=== PATIENT | male | born 1990 | race Asian ===

== ENCOUNTER 2018-07-24 16:23 | Emergency (ER) | payer OTHER ==
[2018-07-24 16:46] VITALS: BP 142/77
--- NOTE | 2018-07-24 18:10 | UC ---
Abdominal Pain Male HPI - HPI Summary HPI Summary: 27-year-old male presents with 2 week history of epigastric pain. States pain started as some intermittent epigastric pain but over the last week it has become more constant. He is unable to describe the pain. States it improves some with eating. He did take [id number] Prilosec for several days with improvement in symptoms and then stopped and symptoms worsened. He has been taking Nexium for the last 4-5 days with no relief in symptoms. Associated with some occasional nausea. Denies fever, chills, chest pain, palpitations, weakness, dizziness, shortness of breath, diaphoresis, vomiting, diarrhea, blood in stools, melena, dysuria, frequency, or urgency. - History of Current Complaint Chief Complaint: UCGU Stated Complaint: ABDOMINAL PAIN Time Seen by Provider: 07/24/18 18:05 Hx Obtained From: Patient Pain Intensity: 6 - Allergies/Home Medications Allergies/Adverse Reactions: Allergies Allergy/AdvReac Type Severity Reaction Status Date / Time No Known Allergies Allergy Verified 07/24/18 16:46 PMH/Surg Hx/FS Hx/Imm Hx Previously Healthy: Yes - Denies significant PMH - Surgical History Surgical History: None - Family History Known Family History: Positive: Non-Contributory - Social History Occupation: Student Lives: Dormitory/Roommates Alcohol Use: Daily Substance Use Type: None Smoking Status (MU): Never Smoked Tobacco Review of Systems All Other Systems Reviewed And Are Negative: Yes Constitutional: Negative: Fever, Chills Skin: Positive: Negative ENT: Positive: Negative Respiratory: Positive: Negative Cardiovascular: Positive: Negative Gastrointestinal: Positive: Abdominal Pain. Negative: Vomiting, Diarrhea, Nausea Genitourinary: Positive: Negative Musculoskeletal: Positive: Negative Neurological: Positive: Negative Is Patient Immunocompromised?: No Physical Exam - Summary Physical Exam Summary: GENERAL APPEARANCE: Well developed, well nourished, alert and cooperative, and appears to be in no acute distress. CARDIAC: Normal S1 and S2. No S3, S4 or murmurs. Rhythm is regular. There is no peripheral edema, cyanosis or pallor. Extremities are warm and well perfused. Capillary refill is less than 2 seconds. LUNGS: Clear to auscultation without rales, rhonchi, wheezing or diminished breath sounds. ABDOMEN: Positive bowel sounds. Soft, nondistended. Mild epigastric, RUQ, and RLQ tenderness without guarding or rebound. No masses or hepatosplenomegally. No CVA tenderness. MUSKULOSKELETAL: ROM intact to all extremities. No joint erythema or tenderness. Normal muscular development. Normal gait. SKIN: Skin normal color, texture and turgor with no lesions or eruptions. Triage Information Reviewed: Yes Vital Signs: Initial Vital Signs Temp 97.7 F 07/24/18 16:40 Pulse 98 07/24/18 16:40 Resp 18 07/24/18 16:40 BP 142/77 07/24/18 16:40 Pulse Ox 100 07/24/18 16:40 Vital Signs Reviewed: Yes Abd Pain Male Course/Dx - Course Course Of Treatment: 27-year-old male presents with 2 week history of epigastric pain. States pain started as some intermittent epigastric pain but over the last week it has become more constant. He is unable to describe the pain. States it improves some with eating. He did take [id number] Prilosec for several days with improvement in symptoms and then stopped and symptoms worsened. He has been taking Nexium for the last 4-5 days with no relief in symptoms. Associated with some occasional nausea. Denies fever, chills, chest pain, palpitations, weakness, dizziness, shortness of breath, diaphoresis, vomiting, diarrhea, blood in stools, melena, dysuria, frequency, or urgency. Afebrile. Mild hypertension otherwise vital signs stable. Exam reveals mild epigastric, right upper quadrant, and right lower quadrant tenderness without guarding or rebound otherwise exam is unremarkable. I suspect that his pain is likely peptic ulcer disease however with his abdominal tenderness and the fact that he reports pain is worsening despite being on Nexium I cannot rule out the possibility of gallbladder disease or pancreatitis and I'm recommending that he be evaluated in the emergency room at this time. 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 The patient is clinically sober, free from distracting injury, appears to have insight and reasoning and in my judgment has capacity to make decisions. I have explained that I am concerned that his/her symptoms may represent gall bladder disease or pancreatitis and he verbalizes understanding of my concern. I have told the patient that despite not having fever they could still have a condition that may require urgent attention. I have discussed the need for further evaluation in the emergency room to obtain more information about the source of his pain. I have told the patient if he chooses not to have any further evaluation he could have worsening of symptoms, become critically ill, suffer diability, and even possibly . The paient continues to decline any further evaluation and is being discharged to home against medical advice. I am going to have him restart omeprazole at 40 mg daily and have him follow up with [facility] for further evaluation of his epigastric pain. I have reviewed warning symptoms that would require immediate evaluation in the emergency room. He verbalizes understanding and agrees with plan of care. - Differential Dx/Clinical Impression Differential Diagnosis/HQI/PQRI: Gall Bladder Disease, Pancreatitis, Peptic Ulcer Disease, Other - GERD Provider Diagnosis: Acute epigastric pain Discharge - Sign-Out/Discharge Documenting (check all that apply): Patient Departure All imaging exams completed and their final reports reviewed: No Studies - Discharge Plan Condition: Stable Disposition: HOME Prescriptions: Omeprazole 40 mg PO DAILY #30 cap Patient Education Materials: Epigastric Pain (ED) Referrals: No Primary Care Phys,NOPCP [Primary Care Provider] - Care [facility] [Outside] - As Soon As Possible (Call tomorrow morning for an appointment.) Additional Instructions: Your epigastric pain is concerning for a peptic ulcer however I cannot exclude other causes of your pain such as gall bladder disease or pancreatitis which may require more urgent attention. I have recommended that you be evaluated in the emergency room for your pain but you have declined this at this time. Start omeprazole (Prilosec) 40 mg daily. I sent a prescription for you for this medication to the pharmacy. Avoid eating spicy or fatty foods. Follow up with the [facility] for further evaluation of your pain. Call tomorrow morning for an appointment. Seek immediate medical attention in the emergency room if you develop fever greater than 100.5 F, have worsening of your abdominal pain, persistent vomiting , there is blood in your emesis or bowel movement, or any worsening of symptoms. - Billing Disposition and Condition Condition: STABLE Disposition: Home
== END 2018-07-24 18:50 | disposition home or self-care (01) ==
LOC: UCEAST 16:23
DX: R10.13 Epigastric pain (principal); R11.0 Nausea
CPT/HCPCS: 99202; G0463

== ENCOUNTER → 2018-08-03 09:32 | Emergency (ER) | payer OTHER ==
[~2018-08-03 09:32] MED LIST: Al Hydrox/Mg Hydrox/Simet LIQ* 30 ML UDC PO ONE; Lidocaine 2% VISCOUS* 15 ML UDC PO ONE
--- OUTSIDE RECORDS SUMMARY | 2018-08-03 09:55 | XMS REPORT | Continuity of Care Document ---
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 Payers Date Identification Numbers Payment Provider Subscriber Policy Number: [id number] Private Luci Dubose PayID: [id number] [facility] [address] [place] [id number] Advance Directives Description No Information Available Problems Description No Information Family History Description No Information Available Social History Type Date Description Comments Sex Unknown Tobacco Use Start: Unknown Patient has never smoked Smoking Status Reviewed: 07/25/18 Patient has never smoked Allergies, Adverse Reactions, Alerts Description No Known Drug Allergies Medications Medication Date Status Form Strength Qnty SIG Indications Ordering Provider Prilosec Active Capsules DR 40mg 1 by Unknown 00 mouth every day Immunizations Description No Information Available Vital Signs Date Vital Result Comment 07/25/2018 1:03pm Height 69 inches 5'9" Weight 162.00 lb Heart Rate 82 /min BP Systolic Sitting 110 mmHg reg adult cuff left arm BP Diastolic Sitting 70 mmHg reg adult cuff left arm Respiratory Rate 16 /min O2 % BldC Oximetry 98 % at rest on room air BMI (Body Mass Index) 23.9 kg/m2 Results Description No Information Available Procedures Description No Information Available Encounters Description No Information Available Plan of Treatment 07/25/2018 - MENG Shah10.13 Epigastric painRecommendations:Take the omeprazole (prilosec) every day Let's start with blood work--I will call you with the results To truly diagnose Peptic Ulcer Disease, you would need an endoscopy, but to avoid the cost of this, we can check a h. pylori stool antigen. If blood work is abnormal, we can pursue a gastroenterologyconsult or imaging (ultrasound or CT)
--- NOTE | 2018-08-03 10:54 | ED ---
Abdominal Pain/Male - HPI Summary HPI Summary: A 27 y/o M presents to ED with c/o worsening mild epigastric abd pain ongoing two days ago. He has had ongoing mild epigastric abd pain for the past 20 days. The pain rated as 4 out of 10. He's been seen at [facility] by Dr. Andres on 07/25/18 for same sx. He was given Prilosec 40mg daily and told to f/u with [facility]. He says the Prilosec was helping mildly. He's also been taking a [place] medication to some relief. Associated sx: severe diarrhea 5x yesterday, black stool, gassy, nausea. It was the diarrhea that caused him to come into the ED for evaluation. Denies fever, back pain. He denies past surgeries. He is scheduled to return to [facility] in one week. - History of Current Complaint Chief Complaint: EDAbdPain Stated Complaint: ABD PAIN Time Seen by Provider: 08/03/18 10:39 Hx Obtained From: Patient Onset/Duration: Lasting Days - worsening, Lasting Weeks - initial onset 2.5 weeks ago, Still Present Timing: Constant Severity Initially: Moderate Severity Currently: Moderate Pain Intensity: 4 - at bedside Pain Scale Used: 0-10 Numeric Location: Epigastric Radiates: No Character: Other: - aching, throbbing, tightness Alleviating Factor(s): Medications Associated Signs And Symptoms: Positive: Nausea, Diarrhea, Other - pos: gassy, black stool. Negative: Fever, Back Pain - Allergies/Home Medications Allergies/Adverse Reactions: Allergies Allergy/AdvReac Type Severity Reaction Status Date / Time No Known Allergies Allergy Verified 07/24/18 16:46 PMH/Surg Hx/FS Hx/Imm Hx Previously Healthy: Yes Endocrine/Hematology History: Denies: Hx Diabetes, Hx Thyroid Disease Cardiovascular History: Denies: Hx Hypertension Respiratory History: Denies: Hx Asthma, Hx Chronic Obstructive Pulmonary Disease (COPD) GI History: Denies: Hx Ulcer Infectious Disease History: No Infectious Disease History: Denies: Hx Hepatitis, Hx Human Immunodeficiency Virus (HIV), Traveled Outside the in Last 30 Days - Family History Known Family History: Positive: Non-Contributory - Social History Occupation: Student Lives: Alone Alcohol Use: Daily Hx Substance Use: No Substance Use Type: Reports: None Hx Tobacco Use: No Smoking Status (MU): Never Smoked Tobacco Review of Systems Negative: Fever, Chills Negative: Erythema Negative: Sore Throat Negative: Chest Pain Negative: Shortness Of Breath, Cough Positive: Abdominal Pain, Diarrhea, Nausea, Other - pos: black stool, gas. Negative: Vomiting Negative: dysuria, hematuria Negative: Myalgia, Edema Negative: Rash Neurological: Other - neg: dizziness All Other Systems Reviewed And Are Negative: Yes Physical Exam - Summary Physical Exam Summary: Constitutional: Well-developed, Well-nourished, Alert. (-) Distressed Skin: Warm, Dry HENT: Normocephalic; Atraumatic Eyes: Conjunctiva normal Neck: Musculoskeletal ROM normal neck. (-) JVD, (-) Stridor, (-) Tracheal deviation Cardio: Rhythm regular, rate normal, Heart sounds normal; Intact distal pulses; The pedal pulses are 2+ and symmetric. Radial pulses are 2+ and symmetric. (-) Murmur Pulmonary/Chest wall: Effort normal. (-) Respiratory distress, (-) Wheezes, (-) Rales Abd: Soft, mild epigastric tenderness, (-) Distension, (-) Guarding, (-) Rebound Musculoskeletal: (-) Edema Lymph: (-) Cervical adenopathy Neuro: Alert, Oriented x3 Psych: Mood and affect Normal Triage Information Reviewed: Yes Vital Signs On Initial Exam: Initial Vitals Temp Pulse Resp BP Pulse Ox 98.6 F 101 18 126/82 99 08/03/18 09:35 08/03/18 09:35 08/03/18 09:35 08/03/18 09:35 08/03/18 09:35 Vital Signs Reviewed: Yes Diagnostics - Vital Signs Vital Signs Temp Pulse Resp BP Pulse Ox 08/03/18 09:35 98.6 F 101 18 126/82 99 - Laboratory Result Diagrams: 08/03/18 11:12 08/03/18 11:12 Lab Statement: Any lab studies that have been ordered have been reviewed, and results considered in the medical decision making process. - Ultrasound No standard instances Ultrasound Interpretation Completed By: Radiologist Summary of Ultrasound Findings: GALLBLADDER U/S, IMPRESSION: NO SONOGRAPHIC EVIDENCE OF ACUTE CHOLECYSTITIS OR OTHER ACUTE RIGHT UPPER QUADRANT ABNORMALITY. ED provider has reviewed this report. Re-Evaluation - Re-Evaluation 1 Re-Evaluation Time: 12:30 Change: Unchanged Comment: After additional discussion, pt states he did take Pepto-Bismal, which is likely the cause of his black stools. I also recommended Immodium to him. Abdominal Pain Fem Course/Dx - Course Course Of Treatment: Pt is a 27 y/o M presenting with worsening mild epigastric abd pain onset two days ago. He has had ongoing mild epigastric abd pain for the past 20 days. The pain is rated as 4/10. He's been seen at [facility] by Dr. Andres on 07/25/18 for same sx. He was given Prilosec 40mg daily and told to f/u with [facility]. Associated sx: severe diarrhea 5x yesterday, black stool, gassy, nausea. Denies fever, back pain. He denies past surgeries. He is scheduled to return to [facility] in one week. High suspicion for peptic ulcer or gastritis. Lab work is unremarkable. Hemoglobin is metastatically stable. Gallbladder U/S is nengative. Pt has been symptomatic for a few weeks. Stool guiac is pending. No signficant tenderness over abd on exam. After additional discussion, pt states he did take Pepto-Bismal, which is likely the cause of his black stools. I also recommended Immodium to him. Will discharge pt home to f/u with GI in 2-3 days, or to f/u with GI in [place] as time/travel dictates. Will change his medication to protonix, carafate and to discontinue prilosec. - Diagnoses Differential Diagnosis/HQI/PQRI: Peptic Ulcer Disease, Other - Gastritis Provider Diagnoses: Epigastric pain Discharge - Sign-Out/Discharge Documenting (check all that apply): Patient Departure - D/C Patient Received Moderate/Deep Sedation with Procedure: No - Discharge Plan Condition: Stable Disposition: HOME Prescriptions: Pantoprazole TAB * [Protonix TAB*] 40 mg PO DAILY #30 tab Sucralfate TAB* [Carafate*] 1 gm PO BID #60 tab Patient Education Materials: Sucralfate (By mouth), Pantoprazole (By mouth), Epigastric Pain (ED) Referrals: [facility] [Outside] Hermilo Lockwood DO [Doctor of Osteopathy] - 2 Days Additional Instructions: Follow up with Dr. Lockwood, GI, in 2-3 days. If you are unable to follow-up before you return to [place], you should follow-up with GI in [place]. Stop taking the Prilosec. Return to the emergency department for changing or worsening symptoms. - Attestation Statements Document Initiated by Scribe: Yes Documenting Scribe: Belem Santos Provider For Whom Scribe is Documenting (Include Credential): Dr. Elvis Crabtree MD Scribe Attestation: I, Belem Santos, scribed for Dr. Elvis Crabtree MD on 08/03/18 at 1235.
[2018-08-03 11:26] LABS: ABS Basophils 0 10^3/ul (0-0.2); ABS Eosinophils 0 10^3/ul (0-0.6); ABS Lymphocytes 1.1 10^3/ul (1.0-4.8); ABS Monocytes 0.6 10^3/ul (0-0.8); ABS Neutrophils 4.4 10^3/ul (1.5-7.7); ABS Nucleated RBC 0 10^3/ul; Eosinophil % 0 %; Hematocrit 50 % (42-52); Mean Corpuscular HGB Conc 34 g/dl (31-36); Mean Corpuscular Hemoglobin 30 pg (27-31); Mean Corpuscular Volume 89 fL (80-94); Mean Platelet Volume 9.7 fL (7.4-10.4); Nucleated Red Blood Cells % 0; Platelet Count 146 10^3/ul (150-450); Red Blood Count 5.62 10^6/ul (4.00-5.40); Red Cell Distribution Width 12 % (10.5-15); White Blood Count 6.1 10^3/ul (3.5-10.8)
[2018-08-03 11:43] LABS: Albumin 4.9 g/dL (3.2-5.2); BUN/Creatinine Ratio 10.7 (8-20); C Reactive Protein 7.98 mg/L (<8.01); Calcium 9.8 mg/dL (8.6-10.3); EGFR African American 134.7 (>60); EGFR Non-African American 111.3 (>60); Globulin 2.5 g/dL (2-4); Potassium 3.8 mmol/L (3.5-5.0); Total Bilirubin 0.6 mg/dL (0.2-1.0); Total Protein 7.4 g/dL (6.4-8.9)
[2018-08-03 13:33] VITALS: BP 132/78
== END | disposition home or self-care (01) ==
LOC: ED 09:32
DX: R10.13 Epigastric pain (principal)
CPT/HCPCS: 36415; 76705; 80053; 82272; 83605; 83690; 85025; 86140; 87045; 87046; 87899; 99283; A9270-GY